=== PATIENT | female | born 1945 | race Caucasian/White ===

== ENCOUNTER 2016-11-02 04:59 | Emergency (ER) | payer MEDICARE ==
[~2016-11-02] VITALS: Ht 170.2 cm; Wt 55.9 kg
[2016-11-02 05:09] VITALS: BP 152/86; PULSE 94; RESP 24; O2SAT 98
--- NOTE | 2016-11-02 05:58 | ED.REPORT ---
HPI-Extremity Problem Upper Date of Service Nov 02, 2016 ED Provider: Favian Pedro MD A 71 year old female with a history of hypertension presents to the ED complaining of right shoulder pain. The pt was walking her dog last night at 21: 00 when she tripped on the leash and fell. She landed on her right shoulder and hit her head, resulting in a small abrasion on her lip and severe pain with any movement of her right arm. The pt denies loss of consciousness, nausea, vomiting , abdominal pain, or neck pain. She also denies use of blood thinners. Nursing Notes Stated Complaint: R SHOULDER PAIN/ FALL Chief Complaint: Extremity Trauma Nursing Notes Reviewed: Yes Allergies: Coded Allergies: No Known Allergies (Unverified , 11/02/16) General Time Seen by MD: 05:57 Chief Complaint Shoulder injury right Hx Obtained From: Patient Arrived By: Walk-in Onset Occurred: 9 - 12 hours ago Symptom Duration: Since onset Recent Healthcare: No recent hospitalization Similar Sx Previous: No Past Medical History Past Medical History hypertension Past Surgical History none reported Smoking History Unknown if Ever Smoker Social History one beer per day Other Social History: Good social support, Ambulatory Status Independent Review of Systems Constitutional: Denies: Fever Musculoskeletal: Reports: Extremity pain, Joint pain (right shoulder), Denies: Neck pain Skin: Denies Rash Neurologic: Denies: Change LOC Complete sys rev & neg: except as marked. Respiratory: Denies: Non-productive cough, Shortness of breath Cardiovascular: Denies: Chest pain GI: Denies: Abdominal pain, Nausea, Vomiting Physical Exam Initial Vital Signs Vital Signs (First) Date Time Temp Pulse Resp B/P Pulse Ox O2 Delivery O2 Flow Rate FiO2 11/02/16 05:09 36.4 94 24 152/86 98 Room Air 11/02/16 08:31 2 Initial VS: Reviewed General/Constitutional: Awake, Alert Neck: Atraumatic, Supple, Full range of motion Respiratory / Chest: Atraumatic, Breath sounds NL, Breath sounds = bilat, No respiratory distress Cardiovascular: Heart rate NL, Regular rhythm, Heart sounds NL tenderness of right spine of scapula, acromion, and proximal humerus dramatically limited range of motion of right arm secondary to pain full range of motion of elbow and wrist neurovascularly intact distally Skin: Color NL, No rash, Warm, Dry Neurologic: Oriented X3, Speech NL, No motor deficits, No sensory deficits Head / Eyes: Normocephalic, PERRL, EOMI contusion of upper lip no laceration no dental complaint ENT: Atraumatic, Airway patent, Mucous membranes moist Abdomen: Atraumatic, Soft, Non-tender Back: Atraumatic, Full range of motion Lower Extremity / Pelvis / MS: Atraumatic, Full range of motion Psychiatric: Affect NL, Mood NL Interpretation & Diagnostics X-Ray Interpretation Xray Interpretation: IMPRESSION: Fracture dislocation of the right humeral head from the glenoid. Dictated by: Gilberto Cotto M.D. on 11/02/2016 at 8:46 Approved by: Gilberto Cotto M.D. on 11/02/2016 at 8:47 X-Ray Ordered: Shoulder right Interpretation / Wet Read by: Interpret - Radiologist Xray Interpretation: IMPRESSION: Failed relocation of the right humeral head into the glenoid fossa. Again noted is lateral fracture fragments from the right humeral head. Dictated by: Gilberto Cotto M.D. on 11/02/2016 at 9:06 Approved by: Gilberto Cotto M.D. on 11/02/2016 at 9:07 X-Ray Ordered: Shoulder right Interpretation / Wet Read by: Interpret - Radiologist Xray Interpretation: IMPRESSION: Reduced humeral head into the glenoid fossa. Significant reduction of displaced fracture fragment from the humeral head laterally against the donor site. Dictated by: Gilberto Cotto M.D. on 11/02/2016 at 9:07 Approved by: Gilberto Cotto M.D. on 11/02/2016 at 9:08 X-Ray Ordered: Shoulder right Interpretation / Wet Read by: Interpret - Radiologist Procedures Reduction Dislocated Shoulder: 07:14 ED physician informed consent provided from patient, time-out performed right shoulder neurovascularly intact pre- and post-procedure procedure not successful, patient stable Reduction Dislocated Shoulder: 08:06 ED physician informed consent provided from patient, time-out performed right shoulder sedation: Propofol [id number], external rotation neurovascularly intact pre- and post-procedure procedure not successful per x-ray, patient stable Proced Mod Sedation/Analgesia Time: 08:06 Procedure Performed by: ED physician Sedation Time: 10 - 15 min Consent / Setup: Informed consent provided, Consent from patient Indication: Shoulder reduction Preparation: quality assurance monitor applied, Pulse oximeter applied, Constant attendance, IV access established, Eval last meal time, Supplemental oxygen, Procedure explained, End tidal CO2 mon applied VS Prior to Procedure: All vital signs normal, O2 saturation normal, Blood pressure normal, Heart Rate normal, Respiratory rate normal Sedation: Sedation: Propofol ASA Classification: 1 normal healthy patient Response During Procedure: Handled secretions adeq, Maintained airway well, Oxygenation stable, Sedation appropriate, Vital signs stable Complications During/After: None Reversal: None required Mental Status After Procedure: Alert, Oriented X3, At patient's baseline Post-Procedure: Alert prior to discharge, Vital signs normal Attestation: I performed procedure, I performed sedation Reduction Dislocated Shoulder Time: 08:32 Procedure Performed by: ED physician Consent / Setup: Informed consent provided, Consent from patient, Time-out performed, Oxygen administered, Pulse oximeter applied, quality assurance monitor applied , Hand hygiene observed Procedural Sedation/Analgesia: Sedation: Propofol Which Shoulder and Technique: Right shoulder, External rotation, Traction- counter-traction Neurovascular: Intact pre-procedure, Intact post-procedure Post-Procedure / Complications: Procedure successful, X-ray disloc reduced, Condition improved, Tolerated procedure well, Patient stable Re-Eval/Medical Decision Source of Hx: Old records Re-Evaluation/Progress #1: Time of Eval: 06:54 Patient Status: Condition improved Re-Evaluation/Progress Note: Pt rechecked, who is stable. X-ray results and treatment plan are discussed. Re-Evaluation/Progress #2: Time of Eval: 07:14 Re-Evaluation/Progress Note: Pt rechecked and right shoulder reduction is attempted. The procedure is not successful. Re-Evaluation/Progress #3: Time of Eval: 07:45 Re-Evaluation/Progress Note: Pt rechecked, who is stable. Consent for conscious sedation is obtained. Re-Evaluation/Progress #4: Time of Eval: 08:06 Re-Evaluation/Progress Note: Pt rechecked and shoulder reduction is performed with sedation. Procedure is not successful per x-ray. Re-Evaluation/Progress #5: Time of Eval: 08:28 Re-Evaluation/Progress Note: Pt rechecked and informed of x-ray results and need for further reduction. Re-Evaluation/Progress #6: Time of Eval: 08:32 Re-Evaluation/Progress Note: Pt rechecked, who is stable. Shoulder reduction is performed with sedation. Re-Evaluation/Progress #7: Time of Eval: 09:10 Patient Status: Condition improved Re-Evaluation/Progress Note: Pt rechecked, who is feeling significantly better. Radiology results are discussed. Re-Evaluation/Progress #8: Time of Eval: 09:27 Patient Status: Condition improved Re-Evaluation/Progress Note: Pt rechecked, who is comfortable. The diagnosis and plan for discharge are discussed. The pt understands and agrees with the plan. All questions are addressed at this time. Counseled Regarding: Diagnosis, Lab results, Need for follow-up, When/why to return to ED Discharge & Departure Impression: Primary Impression: Dislocation of right shoulder joint Encounter type: initial encounter Qualified Code: S43.004A - Unspecified dislocation of right shoulder joint, initial encounter Additional Impression: Fracture of humeral head, right, closed Encounter type: initial encounter Qualified Code: S42.291A - Other displaced fracture of upper end of right humerus, initial encounter for closed fracture Disposition: Home Discharge Condition All VS Reviewed: Yes Condition: Stable Patient Instructions: Arm Fracture in Adults (ED), Shoulder Dislocation (ED) Additional Instructions: Tylenol 1000 mg 4 times a day as needed for pain. Hydrocodone/APAP one or 2 tablets every 4 hours as needed for pain. Be aware that each tablet of hydrocodone/APAP has 325 mg of Tylenol in it. Do not exceed 4 g (4000 mg) of Tylenol (acetaminophen) daily. Use the splint all the time except to bathe or distress. Be careful to keep your elbow posterior side to prevent redislocation. Follow-up with a primary care physician or orthopedic physician in 3 weeks. Sooner if worse. Referrals: Guerrero Lyons MD [facility] [place] Attestation Portions of this note were transcribed by Francesco Kumar. I, Dr. Pedro personally performed the history, physical exam and medical decision-making; I reviewed and confirmed the accuracy of the information in the transcribed note. Signed by: Tia Gan, 11/02/16 and 09. copies to: [facility] Favian Pedro MD Nov 02, 2016 05:58 FRANCESCO KUMAR Nov 02, 2016 06:25
[2016-11-02] MEDS ORDERED: HYDROcodone-APAP 5-325 mg Tablet PO ONE ×2 (06:25→06:55)
[2016-11-02] MEDS ORDERED: Propofol 10 mg/mL 20 mL Inj IVPUSH ONE (07:45)
[2016-11-02 08:00] VITALS: BP 140/58; PULSE 76; RESP 16; O2SAT 99
[2016-11-02 08:31] VITALS: BP 166/82; PULSE 81; RESP 19; O2SAT 98
--- NOTE | 2016-11-02 08:49 | DRSVH ---
PROCEDURE: X-RAY RIGHT SHOULDER, MINIMUM TWO VIEWS ([id number]) INDICATIONS: trauma TECHNIQUE: 2 views of the shoulder were acquired. COMPARISON: None. FINDINGS: Bones: There is anteroinferior dislocation of the right humeral head from the glenoid fossa. In addit ion on the AP view there is a fracture fragment from the greater tuberosity region displaced from the humeral head. This fragment are comminuted fragment is approximately 24 x 10 mm in size. Soft tissues: No suspicious soft tissue calcifications. IMPRESSION: Fracture dislocation of the right humeral head from the glenoid. Dictated by: Gilberto Cotto M.D. on 11/02/2016 at 8:46 Approved by: Gilberto Cotto M.D. on 11/02/2016 at 8:47
[2016-11-02 09:03] VITALS: BP 130/58; PULSE 71; RESP 21; O2SAT 99
--- NOTE | 2016-11-02 09:08 | DRSVH ---
PROCEDURE: X-RAY RIGHT SHOULDER, ONE VIEW ([id number]) INDICATIONS: post reduction TECHNIQUE: One views of the shoulder were acquired. COMPARISON: None. FINDINGS: Reduction of the humeral head into the right glenoid has not occurred. As on the previous x-rays ther e is fracture of the lateral aspect of the humeral head with some displacement of the fragments in th e region of the greater tuberosity.. IMPRESSION: Failed relocation of the right humeral head into the glenoid fossa. Again noted is lateral fracture fragments from the right humeral head. Dictated by: Gilberto Cotto M.D. on 11/02/2016 at 9:06 Approved by: Gilberto Cotto M.D. on 11/02/2016 at 9:07
--- NOTE | 2016-11-02 09:09 | DRSVH ---
PROCEDURE: X-RAY RIGHT SHOULDER, MINIMUM TWO VIEWS ([id number]) INDICATIONS: post reduction TECHNIQUE: 2 views of the shoulder were acquired. COMPARISON: [facility], CR, XR SHOULDER 1VW RT, 11/02/2016, 8:17. [facility] , CR, XR SHOULDER MIN 2VW RT, 11/02/2016, 6:28. FINDINGS: Bones: There has been reduction of the dislocated right humerus from the glenoid fossa of the right s houlder. There has been significant improvement of the fracture fragments of the right humeral head l aterally compared to the prereduction films. Soft tissues: No suspicious soft tissue calcifications. IMPRESSION: Reduced humeral head into the glenoid fossa. Significant reduction of displaced fracture fragment from the humeral head laterally against the dono r site. Dictated by: Gilberto Cotto M.D. on 11/02/2016 at 9:07 Approved by: Gilberto Cotto M.D. on 11/02/2016 at 9:08
[2016-11-02] MEDS ORDERED: HYDR-4003 PO (09:34)
[2016-11-02 10:15] VITALS: BP 130/58; PULSE 71; RESP 21; O2SAT 99
== END 2016-11-02 09:50 | disposition home or self-care (01) ==
LOC: SED 04:59
DX: S42.291A Other displaced fracture of upper end of right humerus, initial encounter for closed fracture (principal); S43.014A Anterior dislocation of right humerus, initial encounter; W01.10XA Fall on same level from slipping, tripping and stumbling with subsequent striking against unspecified object, initial encounter; Y93.K1 Activity, walking an animal; Y99.8 Other external cause status; Y92.009 Unspecified place in unspecified non-institutional (private) residence as the place of occurrence of the external cause; I10 Essential (primary) hypertension